=== PATIENT | male | born 1945 | race Two or more races ===

== ENCOUNTER 2018-08-22 06:48 | Day surgery (SDC) | payer OTHER ==
[~2018-08-22] VITALS: Ht 180.3 cm; Wt 107.0 kg
[~2018-08-22 06:48] MED LIST: LOSA25TA40 PO
[2018-08-22] MEDS ORDERED: LIDOCAINE 2%HCL (LOCAL ANESTH.) INJ 20ML MDV ONE (07:31)
[2018-08-22] MEDS ORDERED: IODIXANOL 320MG/ML 100ML BTL IV ONE (07:31)
[2018-08-22] MEDS ORDERED: ANGIOMAX 250 MG VIAL IV ONE (07:42)
[2018-08-22] MEDS ORDERED: SODIUM CHL 0.9% 0 ML ONE (07:43)
[2018-08-22] MEDS ORDERED: fentaNYL CITRATE 100 MCG/2 ML VL ONE (07:43)
[2018-08-22] MEDS ORDERED: MIDAZOLAM HCL 1MG/1ML-2 ML VIAL ONE (07:43)
[2018-08-22] MEDS ORDERED: VERAPAMIL 2.5MG/ML INJ 2ML VIAL IV ONE (07:44)
[2018-08-22] MEDS ORDERED: HEPARIN SODIUM (PORCINE) 5000 UNITS/ML 1ML VIAL ONE (08:09)
== END 2018-08-22 10:15 | disposition home or self-care (01) ==
LOC: CATH 06:48
PROVIDERS: ATTEND Internal Medicine
DX: I25.10 Atherosclerotic heart disease of native coronary artery without angina pectoris (principal); I10 Essential (primary) hypertension; Z79.899 Other long term (current) drug therapy; Z85.89 Personal history of malignant neoplasm of other organs and systems; Z98.890 Other specified postprocedural states
CPT/HCPCS: 93005; 93458; A6257; C1894; J1644; J2250; J3010; J7030; Q9967; 99152; 99153

== ENCOUNTER 2019-11-18 07:05 | Inpatient (IN) | payer OTHER ==
[~2019-11-18] VITALS: Ht 180.3 cm; Wt 115.6 kg
[2019-11-18] VITALS (11 sets, daily range): BP systolic 113–142; BP diastolic 51–84
[~2019-11-18 07:05] MED LIST changes: +AMLO5TAB15 PO; +ASPI-404 PO; +ATOR10TA52 PO; +LOSA25TA38 PO; -LOSA25TA40 PO; +NITR0.4S29 SL
[2019-11-18] MEDS ORDERED: MORPHINE SULF(PF) 0.5MG/ML 10ML VIAL ONE ×2 (07:13→07:43)
[2019-11-18] MEDS ORDERED: ACETAMINOPHEN IV 100 ML IV ONE (07:14)
[2019-11-18] MEDS ORDERED: ceFAZolin 1GM/50ML 100 ML IV ONE ×2 (07:14→23:01)
[2019-11-18] MEDS ORDERED: fentaNYL CITRATE 100 MCG/2 ML VL ONE (07:14)
[2019-11-18] MEDS ORDERED: MIDAZOLAM HCL 1MG/1ML-2 ML VIAL ONE (07:14)
[2019-11-18] MEDS ORDERED: ONDANSETRON HCL 4 MG/2 ML VIAL ONE (07:14)
[2019-11-18] MEDS ORDERED: KETOROLAC TROMETH 30 MG/ML 1ML VIAL ONE ×2 (07:14→07:43)
[2019-11-18] MEDS ORDERED: ePHEDrine SULFATE 50 MG/ML AMP ONE (07:14)
[2019-11-18] MEDS ORDERED: GLYCOPYRROLATE 0.2 MG/ML 1ML VIAL ONE (07:14)
[2019-11-18] MEDS ORDERED: DexAMETHasone SOD PHOS 10MG/1ML VIAL INJ ONE (07:14)
[2019-11-18] MEDS ORDERED: PROPOFOL 10 MG/ML 20 ML IV ONE (07:15)
[2019-11-18] MEDS ORDERED: TETRACAINE 1% INJ 2 ML VIAL IJ ONE (07:23)
[2019-11-18] MEDS ORDERED: PHENYLEPHRINE HCL 10 MG/ML VL ONE (07:26)
[2019-11-18] MEDS ORDERED: CELECOXIB 100 MG CAP PO ONE (07:30)
[2019-11-18] MEDS ORDERED: ACETAMINOPHEN IV 1000 MG/100ML (10MG/ML) IV ONE (07:30)
[2019-11-18] MEDS ORDERED: PREGABALIN CAPSULE 75 MG CAP PO ONE (07:30)
[2019-11-18] MEDS ORDERED: BUPIVACAINE W/ EPINEPH 0.25% INJ 50ML MDV ONE (07:41)
[2019-11-18] MEDS ORDERED: TRANEXAMIC ACID 20 ML ONE (07:41)
[2019-11-18] MEDS ORDERED: KETAMINE HCL 10 ML ONE (08:36)
[2019-11-18] MEDS: VANCOMYCIN HCL 1000 MG VL ONE ×2 (09:50→10:05)
[2019-11-18] MEDS ORDERED: ACETAMINOPHEN 325 MG TAB PO PRN (10:45)
[2019-11-18] MEDS ORDERED: NALBUPHINE HCL 10 MG/1ml INJECTION SUBCUT ONE (10:45)
[2019-11-18] MEDS ORDERED: DexAMETHasone SOD PHOS 10MG/1ML VIAL INJ IV PRN (10:45)
[2019-11-18] MEDS ORDERED: ONDANSETRON HCL 4 MG/2 ML VIAL IV PRN (10:45)
[2019-11-18] MEDS ORDERED: NITROGLYCERIN 0.4 MG SL TAB SL PRN ×2 (10:45)
[2019-11-18] MEDS ORDERED: HYDROmorphone HCL 2 MG/ML VL IV PRN ×2 (10:45)
[2019-11-18] MEDS ORDERED: diphenhdrAMINE HCL 50 MG/1 ML VL IV PRN (10:45)
[2019-11-18] MEDS ORDERED: ePHEDrine SULFATE 50 MG/ML AMP IV PRN (10:45)
[2019-11-18] MEDS ORDERED: MORPHINE SULF INJ 2 MG/ML SYRINGE 1ML IV PRN (10:45)
[2019-11-18] MEDS ORDERED: OXYCODONE W/ ACETAMINOPHEN 5/325MG TABLET PO PRN (10:45)
[2019-11-18] MEDS ORDERED: ASPirin-EC 81 mg tab PO ONE (11:15)
[2019-11-18] MEDS ORDERED: amLODIPine BESYLATE 5 MG TAB PO ONE (11:15)
[2019-11-18] MEDS ORDERED: LOSARTAN POTASSIUM 25 MG TAB PO ONE (11:15)
[2019-11-18] MEDS ORDERED: DOCUSATE SOD 100 MG CAP PO ONE (11:15)
[2019-11-18] MEDS ORDERED: ENOXAPARIN SOD 40 MG/0.4 ML SYRINGE SC ONE (11:15)
--- NOTE | 2019-11-18 12:00 | NUR ---
Telemetry admit from ER INO MARIE admitted to Telemetry unit after report received. Patient oriented to TEJINDER GOODEN RN primary RN, unit, room, bed, and unit policies regarding patient care and visiting hours. Patient now on continuous telemetry monitoring, tele box #[id number]. Patient placed on bedside oxygen, placed on continuous oxygen monitoring weighed by bedscale and encouraged to call if they need something. All questions and concerns addressed, patient verbalized understanding.
--- NOTE | 2019-11-18 12:31 | NUR ---
Call to Dr. Layne Call to Dr. Layne regarding lovenox order. Will hold medication until orders are verified with .
[2019-11-18] MEDS: LACTATED RINGER'S 1,000 ML IV SCH ×2 (12:55→20:32)
[2019-11-18] MEDS: KETOROLAC TROMETH 30 MG/ML 1ML VIAL IV SCH ×2 (12:57→18:13)
[2019-11-18] MEDS: SODIUM CHLOR 0.9% PF (SALINE LOCK) 10ML VIAL/SYR IV SCH ×2 (15:07→22:00)
--- NOTE | 2019-11-18 15:12 | NUR ---
Call to Harmony Peoples Call to Harmony Peoples at this time regarding patient's lovenox order. Awaiting callback.
--- NOTE | 2019-11-18 15:36 | NUR ---
Call to Pharmacy Call to pharmacy for the second time. Ancef due at 1400 is still not on unit. pathology tech states they haven't made it yet. Ancef to be made at this time. Awaiting arrival to unit.
[2019-11-18] MEDS: ceFAZolin 1GM 2 GM in D5W 5% 100 ML IV SCH ×2 (15:57→23:04)
--- NOTE | 2019-11-18 19:10 | NUR ---
Waxer Operator at bedside Waxer Operator at bedside fitting patient for CPM.
[2019-11-18] MEDS: ONDANSETRON HCL 4 MG/2 ML VIAL IV PRN (19:12)
--- NOTE | 2019-11-18 19:38 | NUR ---
Closing Shift Note Patient is resting in bed. No distress noted. Report given. Will endorse care to the cage shift manager RN.
[2019-11-18] MEDS: ATORVASTATIN 20 MG TAB PO SCH (22:00)
[2019-11-18] MEDS: DOCUSATE SOD 100 MG CAP PO SCH (22:49)
[2019-11-19] MEDS: KETOROLAC TROMETH 30 MG/ML 1ML VIAL IV SCH ×4 (01:32→19:56)
--- NOTE | 2019-11-19 03:12 | NUR ---
11/18/2019 20:00 Patient educated on CPM machine currently pt has been placed on CPM machine at 45 degrees, pt educated on use of incentive spirometer, return demonstration inhalation of 1500. Pt educated on signs and symptoms of infection. Pt fully alert and orinted x4, verbalized understanding. Pt denies pain at this time. Pt surgical site dressing clean, dry and intact, unable to assess surgical site as pt has not had first dressing removed by surgeon.
[2019-11-19 05:25] VITALS: BP 120/69
[2019-11-19] MEDS: ceFAZolin 1GM 2 GM in D5W 5% 100 ML IV SCH (06:28)
[2019-11-19] MEDS: SODIUM CHLOR 0.9% PF (SALINE LOCK) 10ML VIAL/SYR IV SCH ×3 (06:28→22:32)
[2019-11-19] MEDS: LACTATED RINGER'S 1,000 ML IV SCH ×2 (06:29→16:32)
[2019-11-19 06:33] LABS: Hematocrit 37.6 % (41.0-53.0); Hemoglobin 12.7 g/dL (13.5-17.5)
--- NOTE | 2019-11-19 06:42 | NUR ---
11/19/2019 patient taken off CPM at 01:00 am. foot of bed locked straight, pt educated on not bending knee or placing pillow or blankets under knee. Pt placed back on CPM at 0600 am, reinforced education on use of incentive spirometer. Addendum: 11/19/19 at 0646 by Reg 10 RN Reassessed circulation, capillary refill, sensation, temperature and appearance of surgical site and extremity, no abnormal findings.
[2019-11-19 06:56] LABS: Potassium 5.2 mmol/L (3.5-5.1)
--- NOTE | 2019-11-19 06:58 | NUR ---
Called pharmacy regarding ancef 2 gm, not available in pixys neither is 1 gm. audiovisual aids technician stated they will be up here at 07:30.
[2019-11-19] MEDS ORDERED: ceFAZolin 1GM/50ML 100 ML IV ONE (07:01)
[2019-11-19 07:05] LABS: Albumin 3.2 g/dL (3.4-5.0); BUN/Creatinine Ratio 21.7; Bilirubin, Total 0.4 mg/dL (0.2-1.0); Calcium 8.9 mg/dL (8.5-10.1); Total Protein 6.6 g/dL (6.4-8.2)
--- NOTE | 2019-11-19 07:38 | NUR ---
Dwyer catheter removed at 07:30. Patient educated on signs and symptoms to report, educated on voiding post Dwyer removal.Pt verbalized understanding.
--- NOTE | 2019-11-19 07:43 | NUR ---
Report given to QUINTEN Goddard, aware truong removed at 07:30 and patient placed on CPm at 0600am
[2019-11-19] MEDS: amLODIPine BESYLATE 5 MG TAB PO SCH (10:00)
[2019-11-19] MEDS: ASPirin-EC 81 mg tab PO SCH (10:30)
[2019-11-19] MEDS: DOCUSATE SOD 100 MG CAP PO SCH ×2 (10:30→22:00)
[2019-11-19] MEDS: LOSARTAN POTASSIUM 25 MG TAB PO SCH (10:31)
[2019-11-19] MEDS: ENOXAPARIN SOD 40 MG/0.4 ML SYRINGE SC SCH (10:31)
[2019-11-19 17:19] VITALS: BP 139/73
[2019-11-19] MEDS: SODIUM CHLORIDE 0.9% 1,000 ML IV SCH (17:35)
[2019-11-19] MEDS: ONDANSETRON HCL 4 MG/2 ML VIAL IV PRN (20:17)
[2019-11-19 22:00] VITALS: BP 143/77
[2019-11-19] MEDS: ATORVASTATIN 20 MG TAB PO SCH (22:00)
--- NOTE | 2019-11-19 23:44 | NUR ---
1899. REPORT OBTAINED ON PATIENT. 1999. PATIENT MET IN HIS ROOM. LYING SUPINE WITH HEAD OF BED ELEVATED 30 DEGREES. COMPLAINED OF PAIN LEFT KNEE RELATETED TO WALKING WITH PHYSIOTHERAPIST EARLIER IN THE DAY. AFEBRILE. BREATHING EVEN AND UNLABORED 2015. MEDICATED FOR PAIN.
[2019-11-20] MEDS: LACTATED RINGER'S 1,000 ML IV SCH ×2 (02:32→12:32)
[2019-11-20] MEDS: SODIUM CHLORIDE 0.9% 1,000 ML IV SCH (03:00)
--- NOTE | 2019-11-20 03:36 | NUR ---
PATIENT SLEEPING AT THIS TIME.
--- NOTE | 2019-11-20 04:19 | NUR ---
PATIENT UP AND OUT OF BED SUPPORTED BY HIS WALKER. BODY BATH DONE. COMPLETE LINEN CHANGE DONE. SURGICAL DRESSING LEFT KNEE INTACT.
[2019-11-20] MEDS: OXYCODONE W/ ACETAMINOPHEN 5/325MG TABLET PO PRN ×2 (04:43→09:37)
[2019-11-20 04:47] VITALS: BP 139/73
[2019-11-20 06:01] LABS: Hematocrit 33.8 % (41.0-53.0); Hemoglobin 11.7 g/dL (13.5-17.5)
[2019-11-20] MEDS: SODIUM CHLOR 0.9% PF (SALINE LOCK) 10ML VIAL/SYR IV SCH ×2 (06:18→13:34)
--- NOTE | 2019-11-20 06:19 | NUR ---
0443. MEDICATED FOR PAIN
[2019-11-20 09:00] VITALS: BP 151/82
--- NOTE | 2019-11-20 09:05 | NUR ---
SPOKE WITH PATIENTS SON HAYDEN AND NOTIFIED HIM PATIENT WILL BE DISCHARGED TODAY. HE STATES THE PATIENT WANTS TO SPEAK TO THE DOCTOR BECAUSE HIS DAD IS STILL HAVING PAIN. I EXPLAINED TO HIM THE PATIENT HAS HAD TESTS DONE AND THE DOCTOR DOES NOT BELIEVE IT TO BE CARDIAC RELATED, BUT MUSCULOSKELETAL. HE VERBALIZED UNDERSTANDING AND STATED HE WILL PICK HIS DAD UP AFTER THE DOCTOR HAS TALKED TO HIS DAD.
--- NOTE | 2019-11-20 09:10 | NUR ---
CALLED AND LEFT MESSAGE WITH DR. AMBRZI REGARDING PATIENTS DISCHARGE. LET HIM KNOW THAT THE PATIENT WOULD LIKE TO SPEAK WITH THE DOCTOR BEFORE HE IS DISCHARGED SINCE HE IS STILL HAVING PAIN. AWAITING CALL BACK
[2019-11-20] MEDS: ASPirin-EC 81 mg tab PO SCH (09:18)
[2019-11-20] MEDS: ENOXAPARIN SOD 40 MG/0.4 ML SYRINGE SC SCH (09:18)
[2019-11-20] MEDS: DOCUSATE SOD 100 MG CAP PO SCH (09:19)
[2019-11-20] MEDS: amLODIPine BESYLATE 5 MG TAB PO SCH (09:27)
[2019-11-20] MEDS: LOSARTAN POTASSIUM 25 MG TAB PO SCH (09:27)
[2019-11-20 12:35] VITALS: BP 140/77
--- NOTE | 2019-11-20 14:18 | NUR ---
Discharge instructions given as ordered. Encourage to follow up with PMD as instructed and to follow up with appointment made with Dr. Tuttle on December 05. All questions and concerns addressed. Patient verbalized understanding. Medication reconciliation form completed and copy given to patient. IV removed with catheter intact, pressure dressing applied. Telemetry unit returned to ICU. Patient taken to vehicle via wheelchair with all personal belongings, accompanied by staff and son. Patient took home CPM and will return when therapy completed. No distress noted at time of departure.
== END 2019-11-20 14:15 | disposition home health service (06) | DRG 470 ==
LOC: OVERFLOW 07:05 → EDSTATUS 08:30 → OVERFLOW 10:38 → TELE-WESTW 11:52
PROVIDERS: ADMIT Orthopaedic Surgery Adult Reconstructive Orthopaedic Surgery; ATTEND Orthopaedic Surgery Adult Reconstructive Orthopaedic Surgery
PROC: 0SRD0J9 Replacement of Left Knee Joint with Synthetic Substitute, Cemented, Open Approach (ICD-10-PCS; principal; 2019-11-18 08:17)
DX: M17.12 Unilateral primary osteoarthritis, left knee (principal); E78.5 Hyperlipidemia, unspecified; I10 Essential (primary) hypertension; E87.5 Hyperkalemia; M81.0 Age-related osteoporosis without current pathological fracture; Z96.652 Presence of left artificial knee joint; Z79.899 Other long term (current) drug therapy; Z79.82 Long term (current) use of aspirin; Z11.59 Encounter for screening for other viral diseases
CPT/HCPCS: 36415; 73560; 80053; 84132; 85014; 85018; 86850; 86900; 86901; 87635; 97110; 97116; 97163; 97530; A6198; C1713; G0378; J0131; J0690; J1100; J1885; J2250; J2405; J2704; J7060

== ENCOUNTER 2019-11-23 09:32 | Inpatient (IN) | payer OTHER ==
[~2019-11-23] VITALS: Ht 180.3 cm; Wt 117.0 kg
[~2019-11-23 09:32] MED LIST changes: -ASPI-404 PO; +ASPI-543 PO
[2019-11-23] MEDS ORDERED: cefTRIAXone 1GM/50ML D5W 50 ML IV ONE (10:30)
[2019-11-23 10:34] LABS: Basophils # (auto) 0 10 ^3/uL (0-0.2); Basophils % (auto) 0.3 % (0.0-2.0); Eosinophils # (auto) 0 10 ^3/uL (0-0.8); Eosinophils % (auto) 0.6 % (0.0-7.0); Hematocrit 36.1 % (41.0-53.0); Hemoglobin 11.9 g/dL (13.5-17.5); Lymphocytes # (auto) 1.1 10 ^3/uL (0.4-5.4); Lymphocytes % (auto) 14.8 % (10.0-50.0); Mean Corpuscular Hemoglobin 31.2 pg (28.0-32.0); Mean Corpuscular Hgb Conc. 33.1 g/dL (32.0-36.0); Mean Corpuscular Volume 94.2 fL (80.0-100.0); Monocytes # (auto) 0.9 10 ^3/uL (0-1.3); Monocytes % (auto) 11.5 % (0.0-12.0); Neutrophils # (auto) 5.5 10 ^3/uL (1.6-8.6); Neutrophils % (auto) 72.8 % (37.0-80.0); Nucleated Red Blood Cells % 0.1 %; Platelet Count (auto) 200 10^3/uL (140-450); Red Blood Cells 3.83 10^6/uL (4.5-5.90); Red Cell Distribution Width 13.6 % (11.8-14.3); White Blood Cell 7.5 10^3/uL (4.4-10.8)
[2019-11-23 10:50] LABS: Albumin 3.4 g/dL (3.4-5.0); Calcium 9.2 mg/dL (8.5-10.1); Potassium 4.1 mmol/L (3.5-5.1)
[2019-11-23 10:53] LABS: BUN/Creatinine Ratio 13.5; Total Protein 7.5 g/dL (6.4-8.2)
[2019-11-23] MEDS ORDERED: IOHEXOL 350 MG/ML 100ML IJ ONE (13:10)
[2019-11-23] MEDS ORDERED: VANCOMYCIN PER PHARMACY 0 MG IV SCH (15:00)
[2019-11-23] MEDS ORDERED: NITROGLYCERIN 0.4 MG SL TAB SL PRN (15:00)
[2019-11-23] MEDS ORDERED: MORPHINE SULF INJ 2 MG/ML SYRINGE 1ML IV PRN (15:00)
[2019-11-23] MEDS ORDERED: ONDANSETRON HCL 4 MG/2 ML VIAL IV PRN (15:00)
[2019-11-23] MEDS ORDERED: ACETAMINOPHEN 500 MG TAB PO PRN (15:00)
[2019-11-23] MEDS ORDERED: DOCUSATE SOD 100 MG CAP PO PRN (15:00)
[2019-11-23] MEDS ORDERED: VANCOMYCIN 1GM/250ML 250 ML IV ONE (15:45)
[2019-11-23] MEDS: MORPHINE SULF INJ 2 MG/ML SYRINGE 1ML IV PRN ×2 (15:48→15:49)
[2019-11-23] MEDS: SODIUM CHLORIDE 0.9% 1,000 ML IV SCH (15:48)
--- NOTE | 2019-11-23 16:27 | NUR ---
Telemetry admit from ER INO MARIE admitted to Telemetry unit after SBAR received. Patient oriented to MARCIE TUBBS, RN primary RN, unit, room, bed, and unit policies regarding patient care and visiting hours. Patient weighed by bed scale and encouraged to call if they need something. All questions and concerns addressed, patient verbalized understanding.
[2019-11-23 16:45] VITALS: BP 161/116
[2019-11-23 16:54] VITALS: BP 161/116
[2019-11-23] MEDS ORDERED: LOSA25TA38 PO (16:54)
[2019-11-23] MEDS ORDERED: PERCOT PO (16:54)
[2019-11-23] MEDS ORDERED: ENOX80IN8 SC (16:54)
[2019-11-23] MEDS ORDERED: hydrALAZINE HCL 20 MG/ML VL IV PRN (17:00)
--- NOTE | 2019-11-23 17:57 | NUR ---
admission wound pictures taken and MRSA swab collected and sent to lab.
--- NOTE | 2019-11-23 19:30 | NUR ---
Opening Shift Note Assumed care of patient, awake and alert. Fall and safety precautions in place. No S/S of distress/SOB or pain. Call light within reach and able to use. Instructed on POC and to call for assist PRN, patient verbalized understanding and in agreement. Will continue to monitor for changes Q1hr and PRN.
--- NOTE | 2019-11-23 21:50 | NUR ---
PAIN ASSESSMENT PATIENT C/O 5/10 PAIN USING ADULT PAIN SCALE TO LEFT LOWER LEG S/P RECENT OPERATION. PATIENT EDUCATED ON OPTIONS/METHODS FOR PAIN RELIEF. PATIENT VERBALIZED UNDERSTANDING AND IN AGREEMENT FOR MEDICATION TO RELIEVE PAIN. DISCUSSED WITH PATIENT SIDE EFFECTS AND POSSIBLE WORSENING OF NO BOWEL MOVEMENT. PATIENT REQUESTS MEDICATION, SEE EMAR FOR MEDICATION ADMINISTRATION. WILL CONTINUE TO MONITOR.
[2019-11-23] MEDS: ATORVASTATIN 20 MG TAB PO SCH (21:57)
[2019-11-23] MEDS: HYDROcodone-ACET 5/325MG TAB PO PRN (21:57)
[2019-11-23 22:00] VITALS: BP 132/60
--- NOTE | 2019-11-23 22:00 | NUR ---
MED NON-ADMIN EDUCATED PATIENT ON MEDICATION SCHEDULED FOR THIS TIME AND PRN MEDICATION FOR CONSTIPATION. PATIENT HAS NOT HAD A RECENT BOWEL MOVEMENT. PATIENT STATES THAT HE DOES NOT WANT TO TAKE EITHER MEDICATION. DISCUSSED WITH PATIENT INDICATION/IMPORTANCE OF MEDICATION AND PATIENT EDUCATION REINFORCED. PATIENT CONTINUES TO REFUSE. WILL CONTINUE TO MONITOR.
--- NOTE | 2019-11-23 22:57 | NUR ---
PAIN REASSESSMENT PATIENT PAIN 0/10. PATIENT RESTING IN BED. CALL LIGHT WITHIN REACH. WILL CONTINUE TO MONITOR.
[2019-11-24] MEDS: VANCOMYCIN 1GM/250ML 250 ML IV SCH ×2 (01:00→12:26)
[2019-11-24] MEDS: SODIUM CHLORIDE 0.9% 1,000 ML IV SCH ×2 (04:52→17:52)
[2019-11-24 05:00] VITALS: BP 136/69
[2019-11-24 08:53] VITALS: BP 132/71
[2019-11-24] MEDS ORDERED: cefTRIAXone 1GM/50ML D5W 50 ML IV SCH (09:00)
--- NOTE | 2019-11-24 11:00 | NUR ---
WOUND CARE NOTE: WOUND CONSULT ORDERED FOR PATIENT WITH WOUND TO LEFT LOWER LEG (KNEE). PATIENT ADMITTED TO [facility] WITH DIAGNOSIS OF LLE CELLULITIS. CURRENT [facility]ARK SCORE IS 14. PATIENT RECENTLY UNDERWENT SURGERY TO THE LEFT KNEE. HE HAS WELL APPROXIMATED INCISION THAT IS STAPLED CLOSED, WITH MULTIPLE INTACT NESTOR. NO OPEN OR DRAINAGE NOTED. EPITHELIAL RIDGE APPEARS INTACT. LEFT OPEN TO AIR. THERE IS MILD ERYTHEMA/EDEMA TO THE PERIWOUND, AND MEDIAL THIGH TO KNEE.THERE IS A HEMATOMA TO LEFT POSTERIOR THIGH. RECOMMEND: ELEVATION OF LEFT LEG UP ONTO PILLOWS FOR EDEMA CONTROL,LEAVE WOUND/INCISION OPEN TO AIR, SKIN/WOUND CARE PLAN. WILL DEFER ANY OTHER RECOMMENDATIONS TO SURGEON AT THIS POINT TO THIS WOUND. Addendum: 11/24/19 at 1515 by Ele Holcomb RN Amended: Links added.
[2019-11-24] MEDS: MORPHINE SULF INJ 2 MG/ML SYRINGE 1ML IV PRN ×2 (12:20→21:10)
[2019-11-24] MEDS: LOSARTAN POTASSIUM 25 MG TAB PO SCH (12:25)
[2019-11-24] MEDS: PANTOPRAZOLE 40 MG TAB PO SCH (12:26)
[2019-11-24] MEDS: amLODIPine BESYLATE 5 MG TAB PO SCH (12:26)
[2019-11-24 12:27] VITALS: BP 142/65
[2019-11-24] MEDS ORDERED: CEFEPIME 2 GM in SODIUM CHL 0.9% 50 ML IV SCH (14:00)
--- NOTE | 2019-11-24 14:38 | NUR ---
I faxed SNF order to [facility], [facility], [facility], [facility] and [facility].
--- NOTE | 2019-11-24 15:55 | NUR ---
Midline Placement: Patient educated on need for midline placement. All risks and benefits explained and all questions and concerns addresses prior to procedure. 18g/10cm midline inserted via left cephalic vein using Ultrasound. Sterile technique utilized. Blood return obtained from lumen and flushed easily with NS using proper technique. Midline secured with saline lock; biodisc and occlusive dressing applied. Primary RN notified. Midline lot #[id number]
[2019-11-24 16:34] VITALS: BP 139/69
--- NOTE | 2019-11-24 19:45 | NUR ---
Opening Shift Note Assumed care of patient, AOX4. No S/S of distress/SOB. Fall and safety precautions in place. Call light within reach and able to use. Instructed on plan of care and to call for assist PRN, patient verbalized understanding and in agreement. Will continue to monitor for changes Q1hr and PRN.
--- NOTE | 2019-11-24 21:30 | NUR ---
MED NON-ADMIN EDUCATED PATIENT ON MEDICATION SCHEDULED FOR THIS TIME. PATIENT REFUSES MEDICATION. DISCUSSED WITH PATIENT INDICATION/IMPORTANCE OF MEDICATION AND PATIENT EDUCATION REINFORCED. PATIENT CONTINUES TO REFUSE. WILL CONTINUE TO MONITOR.
[2019-11-24] MEDS: ATORVASTATIN 20 MG TAB PO SCH (21:48)
[2019-11-24 22:52] VITALS: BP 149/65
[2019-11-25] MEDS: MORPHINE SULF INJ 2 MG/ML SYRINGE 1ML IV PRN (02:53)
[2019-11-25 05:38] VITALS: BP 138/75
[2019-11-25] MEDS: SODIUM CHLORIDE 0.9% 1,000 ML IV SCH (06:18)
[2019-11-25] MEDS: HYDROcodone-ACET 5/325MG TAB PO PRN ×2 (06:34→14:41)
--- NOTE | 2019-11-25 07:20 | NUR ---
Opening Shift Note Assumed care of patient, awake and alert. No S/S of distress/SOB or pain. Instructed on POC and to call for assist PRN, will continue to monitor for changes Q1hr and PRN. Bed is set in lowest locked position with side rails up x 2 for safety and call light is within reach.
[2019-11-25 08:03] VITALS: BP 131/70
[2019-11-25 08:45] VITALS: BP 131/70
[2019-11-25] MEDS: PANTOPRAZOLE 40 MG TAB PO SCH (09:37)
[2019-11-25] MEDS: LOSARTAN POTASSIUM 25 MG TAB PO SCH (09:38)
[2019-11-25] MEDS: amLODIPine BESYLATE 5 MG TAB PO SCH (09:38)
--- NOTE | 2019-11-25 11:22 | NUR ---
Faxed PT evaluation Per case management manager request, Addison, sent over documents to Yris in case management at [facility].
--- NOTE | 2019-11-25 11:24 | NUR ---
Spoke to Addison in case management Per Addison, patient's insurance cannot authorize patient to be transferred to the assisted facility. Per MD Roverto Jaime is aware. Will proceed to notify Dr. Peoples.
--- NOTE | 2019-11-25 11:26 | NUR ---
Pagejudy Peoples In regards to transfer to SNF. Awaiting call back.
--- NOTE | 2019-11-25 12:00 | NUR ---
Pagejudy Layne in regards to patient's discharge order Left message at answering service, awaiting call back.
[2019-11-25 13:00] VITALS: BP 133/66
--- NOTE | 2019-11-25 13:50 | NUR ---
Faxed paper work to [facility] per community case manager request
--- NOTE | 2019-11-25 14:51 | NUR ---
Spoke to Addison in case management in regards to home health care services Per Addison, after paperwork is faxed there is no follow up needed, may proceed to discharge patient home and home health care will begin after patient is discharged from hospital. Patient made aware and spoke to next of kin, Jaimee, both verbalized understanding and agree to discharge plan.
--- NOTE | 2019-11-25 15:30 | NUR ---
Spoke to MD Shelton RUIZ made aware of patient cleared to be discharged home with home health by Dr. Layne, per MD Peoples proceed with orders and discontinue midline. Will proceed to carry out orders.
[2019-11-25 15:49] VITALS: BP 133/66
--- NOTE | 2019-11-25 16:00 | NUR ---
Provided discharge instructions to next of kin, Jaimee.
[2019-11-25 17:00] VITALS: BP 150/68
--- NOTE | 2019-11-25 17:01 | NUR ---
Discharge instructions given as ordered. Encourage to follow up with PMD as instructed. All questions and concerns addressed. Patient verbalized understanding. IV removed with catheter intact, pressure dressing applied. Patient taken to vehicle via wheelchair with all personal belongings, accompanied by staff. No distress noted at time of departure.
== END 2019-11-25 17:01 | DRG 565 ==
LOC: ER 09:32 → OVERFLOW 09:33 → CENTRAL 16:31
PROVIDERS: ADMIT Nurse Practitioner Acute Care; ATTEND Nurse Practitioner Acute Care
DX: M25.462 Effusion, left knee (principal); E87.2 Acidosis; M25.562 Pain in left knee; R91.1 Solitary pulmonary nodule; Z96.652 Presence of left artificial knee joint; E66.01 Morbid (severe) obesity due to excess calories; Z68.35 Body mass index [BMI] 35.0-35.9, adult; E78.5 Hyperlipidemia, unspecified; I11.9 Hypertensive heart disease without heart failure; I25.10 Atherosclerotic heart disease of native coronary artery without angina pectoris; Z87.39 Personal history of other diseases of the musculoskeletal system and connective tissue; I25.84 Coronary atherosclerosis due to calcified coronary lesion
CPT/HCPCS: 36415; 71275; 73562; 80053; 83605; 85025; 85379; 87040; 87081; 93971; 96365; 96367; 96375; 97116; 97163; 97530; G0378; J0696; J2405

== ENCOUNTER 2020-06-07 10:58 | Inpatient (IN) | payer OTHER ==
[~2020-06-07] VITALS: Ht 180.3 cm; Wt 111.1 kg
[~2020-06-07 10:58] MED LIST changes: +ENOX80IN8 SC; -NITR0.4S29 SL; +PERCOT PO
[2020-06-07] MEDS ORDERED: SODIUM CHLORIDE 0.9% 1,000 ML IV ONE (11:45)
[2020-06-07] MEDS ORDERED: AZITHROMYCIN 500MG/ 250ML 250 ML IV ONE (11:45)
[2020-06-07] MEDS ORDERED: DexAMETHasone SOD PHOS 10MG/1ML VIAL INJ IV ONE (11:45)
[2020-06-07 14:34] LABS: Basophils # (auto) 0 10 ^3/uL (0-0.2); Basophils % (auto) 0.1 % (0.0-2.0); Eosinophils # (auto) 0 10 ^3/uL (0-0.8); Hematocrit 47.7 % (41.0-53.0); Lymphocytes # (auto) 0.7 10 ^3/uL (0.4-5.4); Lymphocytes % (auto) 4.7 % (10.0-50.0); Mean Corpuscular Hemoglobin 30.5 pg (28.0-32.0); Mean Corpuscular Hgb Conc. 33.6 g/dL (32.0-36.0); Mean Corpuscular Volume 90.5 fL (80.0-100.0); Monocytes # (auto) 1.5 10 ^3/uL (0-1.3); Neutrophils # (auto) 12.4 10 ^3/uL (1.6-8.6); Neutrophils % (auto) 85.2 % (37.0-80.0); Nucleated Red Blood Cells % 0.3 %; Platelet Count (auto) 299 10^3/uL (140-450); Red Blood Cells 5.27 10^6/uL (4.5-5.90); Red Cell Distribution Width 14.5 % (11.8-14.3); White Blood Cell 14.5 10^3/uL (4.4-10.8)
[2020-06-07 14:46] LABS: Albumin 2.7 g/dL (3.4-5.0); Calcium 8.7 mg/dL (8.5-10.1); Magnesium 2.6 mg/dL (1.6-2.6); Potassium 4.5 mmol/L (3.5-5.1)
[2020-06-07 14:48] LABS: Lactic Acid w/Reflex 4.5 mmol/L (0.4-2.0)
[2020-06-07 14:48] LABS: INR 1.11 (0.9-1.15); Partial Thromboplastin Time 25.1 sec (23.0-31.2)
[2020-06-07 14:51] LABS: BUN/Creatinine Ratio 19.5; Total Protein 7.5 g/dL (6.4-8.2)
[2020-06-07] MEDS ORDERED: NITROGLYCERIN 0.4 MG SL TAB SL PRN (18:15)
[2020-06-07] MEDS ORDERED: MORPHINE SULF INJ 2 MG/ML SYRINGE 1ML IV PRN ×2 (18:15→19:00)
[2020-06-07] MEDS ORDERED: TEMAZEPAM 15 MG CAP PO PRN (19:00)
[2020-06-07] MEDS ORDERED: PROMETHAZINE HCL 25 MG/ML 1ML IV PRN (19:00)
[2020-06-07] MEDS ORDERED: ALBUTEROL SULF HFA 90MCG INH 200DOSE IN PRN (19:00)
[2020-06-07] MEDS ORDERED: traMADol HCL 50 MG TAB PO PRN (19:00)
[2020-06-07] MEDS ORDERED: LACTULOSE 20Gm/30ML SOLN PO PRN (19:00)
[2020-06-07] MEDS ORDERED: levoFLOXacin 500MG 100 ML IV ONE (19:00)
[2020-06-07] MEDS ORDERED: ACETAMINOPHEN 500 MG TAB PO PRN (19:00)
[2020-06-07] MEDS: BUDESONIDE (INHALATION) 180 MCG IH IN SCH (22:00)
[2020-06-07] MEDS: ENOXAPARIN SOD 40 MG/0.4 ML SYRINGE SC SCH (22:04)
[2020-06-07] MEDS: CARVEDILOL 3.125 MG TAB PO SCH (22:04)
[2020-06-08 06:29] LABS: Hematocrit 44.8 % (41.0-53.0); Hemoglobin 15.2 g/dL (13.5-17.5); Mean Corpuscular Hemoglobin 30.3 pg (28.0-32.0); Mean Corpuscular Hgb Conc. 33.9 g/dL (32.0-36.0); Mean Corpuscular Volume 89.3 fL (80.0-100.0); Platelet Count (auto) 211 10^3/uL (140-450); Red Blood Cells 5.02 10^6/uL (4.5-5.90); Red Cell Distribution Width 14.2 % (11.8-14.3); White Blood Cell 8.1 10^3/uL (4.4-10.8)
[2020-06-08 06:47] LABS: Blast Cells 0; Promyelocytes % 0; Reactive Lymphocytes 0
[2020-06-08 06:50] LABS: Alanine Aminotransferase 26 U/L (16-61); Albumin 2.3 g/dL (3.4-5.0); Anion Gap 8 (5-15); Aspartate Aminotransferase 22 U/L (15-37); Blood Urea Nitrogen 35 mg/dL (7-18); Calcium 8.4 mg/dL (8.5-10.1); Carbon Dioxide 21 mmol/L (21-32); Chloride 108 mmol/L (98-107); Glucose 190 mg/dL (74-106); Potassium 4.1 mmol/L (3.5-5.1); Sodium 137 mmol/L (136-145)
[2020-06-08 06:53] LABS: Alkaline Phosphatase 63 U/L (45-117); BUN/Creatinine Ratio 28.9; Bilirubin, Total 0.8 mg/dL (0.2-1.0); GFR African American 76 mL/min; GFR Non-African American 63 mL/min; Total Protein 6.4 g/dL (6.4-8.2)
[2020-06-08 07:50] LABS: Band Neutrophils % (manual) 21; Basophils % (manual) 2 (0.0-2.0); Eosinophils % (manual) 4 (0-7); Lymphocytes % (manual) 11 (10.0-50.0); Metamyelocytes % 2; Monocytes % (manual) 3 (0-12); Myelocytes % 1
[2020-06-08] MEDS: BUDESONIDE (INHALATION) 180 MCG IH IN SCH ×2 (10:00→22:08)
[2020-06-08] MEDS: ZINC SULFATE 220mg CAP or TAB PO SCH (11:00)
[2020-06-08] MEDS: DexAMETHasone SOD PHOS 10MG/1ML VIAL INJ IV SCH (11:00)
[2020-06-08] MEDS: CHOLECALCIFEROL (VITD3) 2,000 UNIT CAP PO SCH (11:01)
[2020-06-08] MEDS: FAMOTIDINE 20 MG TAB PO SCH (11:01)
[2020-06-08] MEDS: ASCORBIC ACID 1,000 MG TAB PO SCH (11:01)
[2020-06-08] MEDS: CARVEDILOL 3.125 MG TAB PO SCH ×2 (11:01→22:30)
[2020-06-08] MEDS: ENOXAPARIN SOD 40 MG/0.4 ML SYRINGE SC SCH ×2 (12:54→22:30)
[2020-06-08] MEDS: levoFLOXacin 250MG 100 ML IV SCH (12:54)
[2020-06-08] MEDS ORDERED: METOPROLOL TARTRATE 1MG/1ML-5ML VIAL IV PRN (19:15)
[2020-06-08] MEDS ORDERED: SODIUM CHLORIDE 0.9% 250 ML IV ONE (19:15)
[2020-06-08 20:33] LABS: INR 1.14 (0.9-1.15)
[2020-06-08] MEDS: ALBUTEROL SULF HFA 90MCG INH 200DOSE IN SCH (22:08)
--- NOTE | 2020-06-08 22:09 | NUR ---
2200 MDI AND DPI TX DONE IN ER BED 20. @ 20:20
--- NOTE | 2020-06-08 22:30 | NUR ---
Patient arrived to the unit from the emergency department via wheelchair. He was able to ambulate to the bed independently. He currently is on 5L nasal cannula satting at 92-93%. He complains of shortness of breath while at rest but says it gets worse whenever i move around or get up to go to the bathroom. Does not have any complaints of pain at this time. Bed is locked in the lowest position with side rails up x2. Will continue to monitor.
[2020-06-08 23:21] VITALS: BP 121/64
[2020-06-08 23:41] VITALS: BP 121/64
--- NOTE | 2020-06-09 01:03 | NUR ---
Received call from the laboratory about positive Covid test result.
[2020-06-09 05:49] VITALS: BP 126/75
[2020-06-09] MEDS: ALBUTEROL SULF HFA 90MCG INH 200DOSE IN SCH (06:00)
--- NOTE | 2020-06-09 07:30 | NUR ---
Opening note Assumed care of patient from NOC RN. Patient is AOx4 no s/s of distress noted. Bed is in lowest locked position, side rails up x2, and call light is within reach. Updated patient on plan of care and patient verbalized understanding. Will continue to monitor.
[2020-06-09] MEDS: BUDESONIDE (INHALATION) 180 MCG IH IN SCH (08:05)
[2020-06-09] MEDS ORDERED: IOHEXOL 350 MG/ML 100ML IJ ONE (08:13)
[2020-06-09 08:14] LABS: Hematocrit 42.1 % (41.0-53.0); Hemoglobin 14.1 g/dL (13.5-17.5); Mean Corpuscular Hemoglobin 30.3 pg (28.0-32.0); Mean Corpuscular Hgb Conc. 33.6 g/dL (32.0-36.0); Mean Corpuscular Volume 90.2 fL (80.0-100.0); Platelet Count (auto) 259 10^3/uL (140-450); Red Blood Cells 4.67 10^6/uL (4.5-5.90); Red Cell Distribution Width 14.2 % (11.8-14.3); White Blood Cell 9.4 10^3/uL (4.4-10.8)
[2020-06-09 08:24] LABS: Band Neutrophils % (manual) 0; Basophils % (manual) 0 (0.0-2.0); Blast Cells 0; Eosinophils % (manual) 0 (0-7); Myelocytes % 0; Promyelocytes % 0; Reactive Lymphocytes 0
[2020-06-09 08:43] LABS: Lymphocytes % (manual) 13 (10.0-50.0); Metamyelocytes % 3; Monocytes % (manual) 9 (0-12)
[2020-06-09 09:32] VITALS: BP 113/73
[2020-06-09] MEDS: DexAMETHasone SOD PHOS 10MG/1ML VIAL INJ IV SCH (09:40)
[2020-06-09] MEDS: ZINC SULFATE 220mg CAP or TAB PO SCH (09:40)
[2020-06-09] MEDS: levoFLOXacin 250MG 100 ML IV SCH (09:40)
[2020-06-09] MEDS: CARVEDILOL 3.125 MG TAB PO SCH (09:41)
[2020-06-09] MEDS: ASCORBIC ACID 1,000 MG TAB PO SCH (09:41)
[2020-06-09] MEDS: FAMOTIDINE 20 MG TAB PO SCH (09:41)
[2020-06-09] MEDS: ENOXAPARIN SOD 40 MG/0.4 ML SYRINGE SC SCH (09:42)
[2020-06-09] MEDS: CHOLECALCIFEROL (VITD3) 2,000 UNIT CAP PO SCH (09:42)
--- NOTE | 2020-06-09 09:50 | NUR ---
IV dressing Patient stated IV felt "tight." IV dressing was changed and reinforced. Patient stated relife. IV is patent and flushing.
[2020-06-09 10:56] LABS: Calcium 8.2 mg/dL (8.5-10.1); Magnesium 2.5 mg/dL (1.6-2.6); Potassium 4.3 mmol/L (3.5-5.1)
[2020-06-09 11:04] LABS: BUN/Creatinine Ratio 29.6; CRP High Sensitivity 2.46 mg/dL (< 0.3)
--- NOTE | 2020-06-09 12:01 | NUR ---
Nutrition Assessment Notes Please refer to link for full assessment notes. Est Energy needs: 4882-6114 kcals (17-20 kcal/kgBW) Est Protein needs: 111-122 gms/day (1.0-1.1 gm/kgBW) Will continue to monitor and reassess prn. Addendum: 06/09/20 at [address] Amended: Links added.
[2020-06-09 13:00] VITALS: BP 124/86
--- NOTE | 2020-06-09 13:45 | NUR ---
Call from Received call from Dr. Harmony Peoples. Per MD patient can be D/C on cleared by cardio and pulmo. Per MD patient is to go home with O2 and home health. Will page SW regarding O2 and home health.
--- NOTE | 2020-06-09 13:49 | NUR ---
Paged TRUPTI Belcher social media marketing analyst regarding who is on the case for this patient. Awaiting call back.
[2020-06-09] MEDS ORDERED: ALBUAER3 IN (14:06)
[2020-06-09] MEDS ORDERED: IPRIH IN (14:06)
[2020-06-09] MEDS ORDERED: LEVO500T21 PO (14:06)
[2020-06-09] MEDS ORDERED: DEXA6TAB6 PO (14:06)
--- NOTE | 2020-06-09 14:53 | NUR ---
Assessment Patient is a 74 year old male, patient was unable to participate with SW for initial assessment, SW called Maia [phone]). Per Maia, prior to admission to [facility], Patient is alert and oriented. Per Maia, patient could do all ADL's and ambulate independently. Per Maia, patient is retired and receives social security benefits. Per Maia, patient will return home post discharge, and daughter will provide transportation. Per Maia, she is requesting Advance Directive forms. Discharge planning: Patient will return home post discharge, patient will follow up care with PCP post discharge. SW will provide Advance Directive forms post discharge. Addendum: 06/09/20 at 1458 by CICI PARRA Amended: Links added.
--- NOTE | 2020-06-09 14:59 | NUR ---
Consultation Patient has order for home health, SW has faxed forms to [facility]. SW will follow up with [facility] to confirm services.
--- NOTE | 2020-06-09 15:18 | NUR ---
TRUPTI called [facility], Per Miguel, patient is accepted for service from [facility]. TRUPTI has notified Rina SHIPLEY that patient has been accepted for home health services.
--- NOTE | 2020-06-09 15:20 | NUR ---
call from dependency case manager Call from dependency case manager, stating that patient has been accepted with [facility]. Informed her that 02 is needed. Will resend order to imitate o2 set up.
--- NOTE | 2020-06-09 16:54 | NUR ---
call from business services sales representative Per social sciences instructor, patients [facility]2 [phone]
--- NOTE | 2020-06-09 16:59 | NUR ---
Per Rose from [facility], oxygen will be delivered between 7 - 8 pm tonight. TRUPTI informed Sunitha SHIPLEY, that oxygen tank will be delivered tonight around 7 - 8 pm. Sunitha SHIPLEY stated that she will inform patient of the delivery time of oxygen.
[2020-06-09 17:00] VITALS: BP 118/75
--- NOTE | 2020-06-09 17:09 | NUR ---
physician rounding DR. Harmony Peoples at nurses station, per MD he updated patient on plan of care and patient is clear for DC. Will follow through.
--- NOTE | 2020-06-09 19:15 | NUR ---
end of shift note endorsed care to NOC RN. Endorsed D/C to noc RN. Informed him that oxygen is pending delivery between [id number]. No s/s of distress noted.
[2020-06-09 19:50] VITALS: BP 129/70
[2020-06-09] MEDS ORDERED: APIX5TAB PO (20:39)
[2020-06-09] MEDS ORDERED: APIXABAN 5 MG TAB PO SCH (22:00)
[2020-06-10] MEDS ORDERED: levoFLOXacin 500MG 100 ML IV SCH (10:00)
== END 2020-06-09 21:25 | disposition home health service (06) | DRG 177 ==
LOC: EDBD 10:58 → ER 10:58 → TELE 10:59 → TELE-E-ADS 06-08 21:22
PROVIDERS: ADMIT Internal Medicine; ATTEND Internal Medicine
DX: U07.1 COVID-19 (principal); J12.89 Other viral pneumonia; J96.01 Acute respiratory failure with hypoxia; J98.11 Atelectasis; I12.9 Hypertensive chronic kidney disease with stage 1 through stage 4 chronic kidney disease, or unspecified chronic kidney disease; N18.30 Chronic kidney disease, stage 3 unspecified; E78.5 Hyperlipidemia, unspecified; I48.0 Paroxysmal atrial fibrillation; Z80.3 Family history of malignant neoplasm of breast
CPT/HCPCS: 36415; 71045; 71275; 80048; 80053; 82550; 82728; 83605; 83735; 83880; 84484; 85007; 85025; 85027; 85379; 85610; 85730; 86141; 87040; 93005; 93306; 93970; 94640; 99291; G0378; J1100; J1956

== ENCOUNTER 2023-05-12 17:21 | Emergency (ER) | payer OTHER ==
[~2023-05-12] VITALS: Ht 180.3 cm; Wt 113.0 kg
[~2023-05-12 17:21] MED LIST changes: +ALBUAER3 IN; -AMLO5TAB15 PO; +APIX5TAB PO; +DEXA6TAB6 PO; +IPRIH IN; +LEVO500T31 PO; -LOSA25TA38 PO
[2023-05-12] MEDS ORDERED: TRANEXAMIC ACID 1,000 MG in SODIUM CHL 0.9% 100 ML IV ONE (21:15)
[2023-05-12 21:32] LABS: Alanine Aminotransferase 46 U/L (7-40); Albumin 4.4 g/dL (3.2-4.8); Alkaline Phosphatase 95 U/L (46-116); Anion Gap 10 (5-15); Aspartate Aminotransferase 39 U/L (13-40); BUN/Creatinine Ratio 13.5 (10.0-20.0); Bilirubin, Total 0.8 mg/dL (0.2-1.0); Blood Urea Nitrogen 17 mg/dL (9-23); Calcium 9.5 mg/dL (8.5-10.1); Carbon Dioxide 22 mmol/L (20-30); Chloride 105 mmol/L (98-107); Glucose 175 mg/dL (74-106); Potassium 4.6 mmol/L (3.5-5.1); Sodium 137 mmol/L (136-145); Total Protein 7.2 g/dL (5.7-8.2)
[2023-05-12 21:36] LABS: INR 1.05 (0.9-1.15); Partial Thromboplastin Time 26.7 SEC (24.5-34.5)
[2023-05-12] MEDS ORDERED: TRANEXAMIC ACID 10 ML ONE (23:01)
[2023-05-12 23:26] VITALS: RESP 20; O2SAT 97
[2023-05-13 02:00] VITALS: BP 93/53; PULSE 71; RESP 18; TEMP 97.6; O2SAT 95
== END 2023-05-13 02:01 | disposition home or self-care (01) ==
LOC: ER 17:21
DX: L76.22 Postprocedural hemorrhage of skin and subcutaneous tissue following other procedure (principal); I48.20 Chronic atrial fibrillation, unspecified; E78.00 Pure hypercholesterolemia, unspecified; I10 Essential (primary) hypertension; E78.5 Hyperlipidemia, unspecified; Z96.651 Presence of right artificial knee joint
CPT/HCPCS: 36415; 73562; 80053; 85610; 85730; 96365

== ENCOUNTER 2024-03-25 06:47 | Day surgery (SDC) | payer OTHER ==
[2024-03-25] VITALS (8 sets, daily range): BP systolic 110–156; BP diastolic 64–93; PULSE 58–69; RESP 15–17; TEMP 97.6; O2SAT 95–100
[~2024-03-25] VITALS: Ht 180.3 cm; Wt 109.3 kg
[~2024-03-25 06:47] MED LIST changes: -ALBUAER3 IN; +AMLO1TAB22 PO; -APIX5TAB PO; -ASPI-543 PO; -DEXA6TAB6 PO; -ENOX80IN8 SC; +GLIP5TAB21 PO; +IBUP-1456 PO; -IPRIH IN; -LEVO500T31 PO; +LOSA-535 PO; +METO25TA93 PO; -PERCOT PO
[2024-03-25] MEDS ORDERED: IODIXANOL 320MG/ML 100ML BTL IV ONE ×2 (07:24→08:10)
[2024-03-25] MEDS ORDERED: ANGIOMAX 250 MG VIAL IV ONE (08:52)
[2024-03-25] MEDS ORDERED: HEPARIN SODIUM (PORCINE) 5000 UNITS/ML 1ML VIAL ONE (08:52)
[2024-03-25] MEDS ORDERED: VERAPAMIL 2.5MG/ML INJ 2ML VIAL IV ONE (08:52)
[2024-03-25] MEDS ORDERED: fentaNYL CITRATE 100 MCG/2 ML VL ONE (08:52)
[2024-03-25] MEDS ORDERED: LIDOCAINE 2%HCL (LOCAL ANESTH.) INJ 20ML MDV ONE (08:53)
[2024-03-25] MEDS ORDERED: MIDAZOLAM HCL 2MG/2ML 2ml VIAL (1mg/ml) ONE (08:53)
[2024-03-25] MEDS ORDERED: SODIUM CHL 0.9% 0 ML ONE (08:53)
== END 2024-03-25 11:39 | disposition home or self-care (01) ==
LOC: CATH 06:47
PROVIDERS: ATTEND Internal Medicine
DX: R94.39 Abnormal result of other cardiovascular function study (principal); I25.10 Atherosclerotic heart disease of native coronary artery without angina pectoris; I11.0 Hypertensive heart disease with heart failure; I50.30 Unspecified diastolic (congestive) heart failure; I44.4 Left anterior fascicular block; I49.9 Cardiac arrhythmia, unspecified; Z79.84 Long term (current) use of oral hypoglycemic drugs; Z79.899 Other long term (current) drug therapy; Z82.49 Family history of ischemic heart disease and other diseases of the circulatory system; Z80.6 Family history of leukemia
CPT/HCPCS: 93458; C1769; C1894; J1644; J2250; J3010; J7030; Q9967; 99152